=== PATIENT | female | born 1950 ===

== ENCOUNTER 2017-01-03 10:56 | Inpatient (IN) | payer MEDICARE, MEDICAID ==
[2017-01-03] MEDS ORDERED: Iohexol 240 (50 ml) PO ONE (11:35)
--- NOTE | 2017-01-03 11:39 | ED PDOC ---
HPI: Abdomen Time Seen by Provider: 01/03/17 11:02 Chief Complaint (Nursing): Abdominal Pain Chief Complaint (Provider): Abdominal pain History Per: Patient Additional Complaint(s): Pt is a 66 yo female, PMH of DM, HTN and diverticulitis, presents into ER c/o lower abd. pain and N/V/D x 4 days. pt. also c/o intermittent fever. No medications taken to alleviate symptoms thus far. Past Medical History Reviewed: Nursing Documentation, Vital Signs Vital Signs: Last Vital Signs Temp 98.0 F 01/03/17 11:20 Pulse 86 01/03/17 11:20 Resp 20 01/03/17 11:20 BP 154/79 H 01/03/17 11:20 Pulse Ox 98 01/03/17 17:42 - Medical History PMH: Diabetes, Diverticulitis, HTN - Surgical History Surgical History: Cholecystectomy - Family History Family History: States: No Known Family Hx - Living Arrangements Living Arrangements: With Family - Social History Current smoker - smoking cessation education provided: No Alcohol: None Drugs: Denies - Immunization History Hx Tetanus Toxoid Vaccination: No Hx Influenza Vaccination: No - Home Medications Home Medications: Ambulatory Orders Medication Instructions Recorded LORazepam [Ativan] 1 mg PO DAILY PRN 01/03/17 MetFORMIN [glucoPHAGE] 1,000 mg PO BID 01/03/17 Triamterene/Hydrochlorothiazid 1 tab PO DAILY 01/03/17 [Triamterene-Hctz 37.5-25 mg Cp] - Allergies Allergies/Adverse Reactions: Allergies Allergy/AdvReac Type Severity Reaction Status Date / Time aspirin Allergy FATIGUE Verified 01/03/17 11:20 Review of Systems ROS Statement: Except As Marked, All Systems Reviewed And Found Negative Gastrointestinal: Positive for: Nausea, Abdominal Pain, Diarrhea Physical Exam - Reviewed Nursing Documentation Reviewed: Yes Vital Signs Reviewed: Yes - Physical Exam Appears: Positive for: Well, Non-toxic, No Acute Distress Head Exam: Positive for: ATRAUMATIC, NORMAL INSPECTION, NORMOCEPHALIC Skin: Positive for: Normal Color, Warm, DRY Eye Exam: Positive for: EOMI, Normal appearance, PERRL ENT: Positive for: Normal ENT Inspection Neck: Positive for: Normal, Painless ROM Cardiovascular/Chest: Positive for: Regular Rate, Rhythm Respiratory: Positive for: CNT, Normal Breath Sounds Gastrointestinal/Abdominal: Positive for: Bowel Sounds, Soft, Tenderness (llq). Negative for: Distended, Guarding Back: Positive for: Normal Inspection Extremity: Positive for: Normal ROM Neurologic/Psych: Positive for: Alert, Oriented - Laboratory Results Result Diagrams: 01/03/17 12:14 01/03/17 12:14 - ECG O2 Sat by Pulse Oximetry: 98 Medical Decision Making Medical Decision Making: IV access established and diagnostics ordered Labs resulted and reviewed with Pt who demonstrated full understanding K.Dur administered for 3.5 K IVF running. Pt advised to remain NPO CT resulted: IMPRESSION: Severe descending colon and sigmoid diverticulitis without drainable collection. Additional benign and/or incidental findings described above. IV Cipro and flagyl administered Pt remains afebrile while in ED Pt's PMD, Dr. lBum. Dr. Garza contacted and case discussed. arrangements made for admission Disposition - Clinical Impression Clinical Impression: Diverticulitis - Patient ED Disposition Is Patient to be Admitted: Yes - Disposition Disposition Time: 17:41 Condition: STABLE - POA Present On Arrival: None
[2017-01-03] MEDS ORDERED: Iohexol 240 (50 ml) ONE (11:52)
[2017-01-03] MEDS ORDERED: Atrop/Hyos/Scop/PhenoB Elixir PO ONE (12:00)
[2017-01-03 12:21] LABS: BASO % 0.2 % (0.0-2.0); EOS # 0.1 K/uL (0.0-0.7); EOS % 0.8 % (0.0-4.0); HEMATOCRIT 39.2 % (34.0-47.0); LYMPH % 25.2 % (20.0-40.0); MEAN CORPUSCULAR HEMOGLOBIN 30.1 pg (27.0-31.0); MEAN CORPUSCULAR HGB CONC 34.2 g/dL (33.0-37.0); MEAN PLATELET VOLUME 9.6 fl (7.2-11.7); MONO # 0.9 K/uL (0.0-0.8); MONO % 10.9 % (0.0-10.0); NEUT % 62.9 % (50.0-75.0); NRBC % 0.1 % (0.0-0.0); RED CELL DISTRIBUTION WIDTH 13.5 % (11.5-14.5)
[2017-01-03 12:28] LABS: ALKALINE PHOSPHATASE 106 U/L (38-126); ALT/SGPT 32 U/L (9-52); AMYLASE 50 U/L (30-110); AST/SGOT 25 U/L (14-36); BILIRUBIN,TOTAL 0.5 mg/dl (0.2-1.3); BLOOD UREA NITROGEN 15 mg/dl (7-17); CALCIUM 9.6 mg/dL (8.4-10.2); CARBON DIOXIDE 27 mmol/L (22-30); CHLORIDE 101 mmol/L (98-107); GFR AFRICAN-AMERICAN > 60; GLUCOSE,RANDOM 212 mg/dL (65-105); POTASSIUM 3.5 MMOL/L (3.6-5.0); SODIUM 142 mmol/l (132-148); TOTAL PROTEIN 8.2 G/DL (6.3-8.2)
[2017-01-03 12:34] LABS: ALB/GLOB RATIO 1.1 (1.0-2.1)
[2017-01-03] MEDS ORDERED: Potassium Chloride 10 mEq ER Tab PO STA (13:44)
[2017-01-03] MEDS ORDERED: Sodium Chloride 0.9% 50 ML IV ONE (14:05)
[2017-01-03] MEDS ORDERED: Iohexol 300 100 ML IJ ONE (14:05)
[2017-01-03] MEDS ORDERED: Potassium Chloride 10 mEq ER Tab PO ONE (14:53)
--- NOTE | 2017-01-03 15:08 | CT ---
PROCEDURE: CT Abdomen and Pelvis with contrast HISTORY: abdominal pain, hx diverticulitis COMPARISON: None. TECHNIQUE: Contrast dose: 96 cc Omnipaque 300 Radiation dose: Total exam DLP = 1056.91 mGy-cm. This CT exam was performed using one or more of the following dose reduction techniques: Automated exposure control, adjustment of the mA and/or kV according to patient size, and/or use of iterative reconstruction technique. FINDINGS: LOWER THORAX: Unremarkable. LIVER: Hepatic steatosis. No focal masses. No intrahepatic bile duct dilatation or perihepatic ascites. GALLBLADDER AND BILE DUCTS: Status post cholecystectomy. No abnormality is seen in the gallbladder fossa. PANCREAS: Unremarkable. No gross lesion or ductal dilatation. SPLEEN: Unremarkable. ADRENALS: Unremarkable. No mass. KIDNEYS AND URETERS: Unremarkable. No hydronephrosis. No solid mass. VASCULATURE: Unremarkable. No aortic aneurysm. BOWEL: Mural thickening of the wall of the colon primarily descending colon and sigmoid consistent with acute/ severe diverticulitis. No drainable collection, loculated air or free air. Mural thickening involving ascending and transverse colon also identified. APPENDIX: Normal appendix. PERITONEUM: Unremarkable. No free fluid. No free air. LYMPH NODES: Unremarkable. No enlarged lymph nodes. BLADDER: Unremarkable. REPRODUCTIVE: Unremarkable. BONES: No acute fracture. OTHER FINDINGS: None. IMPRESSION: Severe descending colon and sigmoid diverticulitis without drainable collection. Additional benign and/or incidental findings described above.
[2017-01-03] MEDS ORDERED: Ciprofloxacin 400mg/200ml D5W 400 MG/200 ML BAG IVPB STA (15:26)
[2017-01-03] MEDS ORDERED: metroNIDAZOLE 500mg/100ml NS 100 ML IVPB STA (15:26)
[2017-01-03] MEDS ORDERED: Ciprofloxacin 400mg/200ml D5W 400 MG/200 ML BAG IVPB ONE (15:45)
[2017-01-03 17:58] LABS: RBC URINE < 1 /hpf (0-3); URINE BILIRUBIN NEGATIVE (NEGATIVE); URINE BLOOD NEGATIVE (NEGATIVE); URINE COLOR STRAW (YELLOW); URINE GLUCOSE (UA) NEG (Normal); URINE KETONE NEGATIVE (NEGATIVE); URINE LEUKOCYTE ESTERASE NEG Leu/uL (Negative); URINE PROTEIN NEGATIVE (NEGATIVE); URINE UROBILINOGEN 0.2-1.0 mg/dL (0.2-1.0); WBC URINE 1 /hpf (0-5)
[2017-01-03] MEDS: Ciprofloxacin 400mg/200ml D5W 400 MG/200 ML BAG IVPB SCH (21:22)
[2017-01-03] MEDS: Dextrose 5%/Lactated Ringer's 1,000 ML IV SCH (23:49)
[2017-01-04] MEDS ORDERED: metroNIDAZOLE 500mg/100ml NS 100 ML IVPB SCH (01:00)
[2017-01-04 06:23] LABS: HEMATOCRIT 36.3 % (34.0-47.0); MEAN CELL VOLUME 88.8 fl (81.0-99.0); MEAN CORPUSCULAR HEMOGLOBIN 29.9 pg (27.0-31.0); MEAN CORPUSCULAR HGB CONC 33.7 g/dL (33.0-37.0); RED CELL DISTRIBUTION WIDTH 13.6 % (11.5-14.5); WHITE BLOOD COUNT 6.8 K/uL (4.8-10.8)
[2017-01-04 06:43] LABS: ALKALINE PHOSPHATASE 95 U/L (38-126); ALT/SGPT 33 U/L (9-52); AST/SGOT 28 U/L (14-36); BILIRUBIN,TOTAL 0.4 mg/dl (0.2-1.3); BLOOD UREA NITROGEN 12 mg/dl (7-17); CALCIUM 8.7 mg/dL (8.4-10.2); CARBON DIOXIDE 29 mmol/L (22-30); CHLORIDE 102 mmol/L (98-107); GFR AFRICAN-AMERICAN > 60; GLUCOSE,RANDOM 213 mg/dL (65-105); POTASSIUM 3.4 MMOL/L (3.6-5.0); SODIUM 141 mmol/l (132-148); TOTAL PROTEIN 7.3 G/DL (6.3-8.2)
[2017-01-04] MEDS ORDERED: Potassium Chloride 20 mEq ER Tab PO ONE (09:16)
[2017-01-04] MEDS: Ciprofloxacin 400mg/200ml D5W 400 MG/200 ML BAG IVPB SCH ×2 (10:53→22:10)
--- NOTE | 2017-01-04 13:29 | CP.PCM.HP ---
History of Present Illness - History of Present Illness History of Present Illness: 55 YO F w/ PMH of HTN, DM, and diverticulitis was admitted for abdominal pain associated with nausea, vomiting, diarrhea. PMH: Diabetes, diverticulticulitis, HTN PSH: Cholecystectomy FH: Not significant Present on Admission - Present on Admission Any Indicators Present on Admission: No Past Patient History - Past Medical History & Family History Past Medical History?: Yes - Past Social History Smoking Status: Never Smoked - CARDIAC Hx Cardiac Disorders: Yes Hx Hypertension: Yes - PULMONARY Hx Respiratory Disorders: No - NEUROLOGICAL Hx Neurological Disorder: No - HEENT Hx HEENT Problems: No - RENAL Hx Chronic Kidney Disease: No - ENDOCRINE/METABOLIC Hx Endocrine Disorders: Yes Hx Diabetes Mellitus Type 2: Yes - HEMATOLOGICAL/ONCOLOGICAL Hx Blood Disorders: No - INTEGUMENTARY Hx Dermatological Problems: No - MUSCULOSKELETAL/RHEUMATOLOGICAL Hx Musculoskeletal Disorders: No Hx Falls: No - GASTROINTESTINAL Hx Gastrointestinal Disorders: Yes Hx Diverticulitis: Yes - GENITOURINARY/GYNECOLOGICAL Hx Genitourinary Disorders: No - PSYCHIATRIC Hx Psychophysiologic Disorder: Yes Hx Anxiety: Yes Hx Substance Use: No - SURGICAL HISTORY Hx Surgeries: Yes Hx Cholecystectomy: Yes - ANESTHESIA Hx Anesthesia: Yes Hx Anesthesia Reactions: No Meds Allergies/Adverse Reactions: Allergies Allergy/AdvReac Type Severity Reaction Status Date / Time aspirin Allergy FATIGUE Verified 01/03/17 11:20 Physical Exam - Head Exam Head Exam: NORMAL INSPECTION - Eye Exam Eye Exam: Normal appearance Pupil Exam: NORMAL ACCOMODATION - Respiratory Exam Respiratory Exam: Clear to Auscultation Bilateral, NORMAL BREATHING PATTERN. absent: Rhonchi, Wheezes - Cardiovascular Exam Cardiovascular Exam: REGULAR RHYTHM, +S1, +S2 - GI/Abdominal Exam GI & Abdominal Exam: Normal Bowel Sounds, Soft Additional comments: LLQ tenderness Results - Vital Signs Recent Vital Signs: Last Vital Signs Temp 97.8 F 01/04/17 08:41 Pulse 61 01/04/17 08:41 Resp 20 01/04/17 08:41 BP 135/86 01/04/17 08:41 Pulse Ox 93 L 01/04/17 08:41 - Labs Result Diagrams: 01/04/17 06:10 01/04/17 06:10 Labs: Laboratory Results - last 24 hr 01/03/17 01/04/17 01/04/17 17:40 06:10 06:10 WBC 6.8 RBC 4.09 Hgb 12.2 Hct 36.3 MCV 88.8 MCH 29.9 MCHC 33.7 RDW 13.6 Plt Count 254 ESR 68 H Sodium 141 Potassium 3.4 L Chloride 102 Carbon Dioxide 29 Anion Gap 13 BUN 12 Creatinine 0.6 L Est GFR ( Amer) > 60 Est GFR (Non-Af Amer) > 60 Random Glucose 213 H Calcium 8.7 Total Bilirubin 0.4 AST 28 ALT 33 Alkaline Phosphatase 95 Total Protein 7.3 Albumin 3.7 Globulin 3.6 Albumin/Globulin Ratio 1.0 Urine Color Straw Urine Clarity Clear Urine pH 6.0 Ur Specific [place] 1.036 H Urine Protein Negative Urine Glucose (UA) Neg Urine Ketones Negative Urine Blood Negative Urine Nitrate Negative Urine Bilirubin Negative Urine Urobilinogen 0.2-1.0 Ur Leukocyte Esterase Neg Urine RBC (Auto) < 1 Urine Microscopic WBC 1 Ur Squamous Epith Cells 1 Assessment & Plan (1) Diverticulitis Status: Acute Comment: - NPO. - GI consulted. - Cipro and Flagyl for Antibiotic treatment. - CT: Severe descenting colon and sigmoid diverticulitis without drainable collection (2) Hypokalemia Status: Acute Comment: Likely secondary to vomiting. - K+: 3.4. - supplement electrolyte (3) DVT prophylaxis Status: Acute Comment: Lovenox 40 daily
--- NOTE | 2017-01-04 15:39 | CON ---
DATE: 01/04/2017 REASON FOR CONSULTATION: Abdominal pain. HISTORY OF PRESENT ILLNESS: This is a pleasant 66-year-old female who is well known to my office, basically comes in for abdominal pain and discomfort x1 day. Noted to have diverticulitis on the CT. The patient's pain improved, but she is still having some nausea, vomiting, fevers and chills. No diarrhea. Lying in bed comfortably, in no apparent distress. PAST MEDICAL HISTORY: As above. PAST SURGICAL HISTORY: As above. MEDICATIONS: Have been reviewed. REVIEW OF SYSTEMS: All other systems have been reviewed and negative apart from the HPI. PHYSICAL EXAMINATION VITAL SIGNS: Reviewed in the hospital, grossly unremarkable. GENERAL: This is a pleasant elderly-appearing female, lying in bed comfortably, in no apparent distress. HEENT: Head; normocephalic and atraumatic. Eyes; pupils equal, round, and reactive to light bilaterally. No conjunctival pallor or icterus. NECK: Supple. Normal range of motion. No lymphadenopathy appreciated. LUNGS: Coarse breath sounds bilaterally. HEART: S1 and S2. Regular rate and rhythm. No murmurs appreciated. ABDOMEN: Soft. Some discomfort in the left lower quadrant. No rebound. No guarding. RECTAL: Deferred. EXTREMITIES: Pulses felt bilaterally. SKIN: Warm, dry, and intact. NEUROLOGIC: A and O x3. LABORATORY DATA: All labs and relevant radiology have been reviewed. Labs include WBC 6.9, hemoglobin of 12.2, hematocrit 36.3. ESR 68. LFTs are normal. CAT scan shows severe diverticulitis in the sigmoid and descending. ASSESSMENT AND PLAN: This is a pleasant 66-year-old female with left-sided diverticulitis and this is her second episode in her lifetime. For now, antibiotics, pain control as needed. If pain free, can start clear liquid and if she tolerates clears, will advance diet as tolerated. We will need a colonoscopy in 6-8 weeks. Thank you for the consult. Hang Ventura MD/ PhD cc: Bunny Garza MD
[2017-01-04] MEDS: hydroCHLOROthiazide-Triamterene 25 mg-37.5 mg Cap UD PO SCH (17:15)
[2017-01-04] MEDS: Insulin Regular 100 units/ml SC SCH ×2 (17:20→22:00)
[2017-01-04] MEDS: Enoxaparin 40 mg Syringe SC SCH (17:21)
[2017-01-04] MEDS: Dextrose 5%/Lactated Ringer's 1,000 ML IV SCH (17:23)
[2017-01-05] MEDS: Dextrose 5%/Lactated Ringer's 1,000 ML IV SCH (05:11)
[2017-01-05 06:13] LABS: HEMATOCRIT 35.2 % (34.0-47.0); MEAN CELL VOLUME 88.3 fl (81.0-99.0); MEAN CORPUSCULAR HEMOGLOBIN 29.8 pg (27.0-31.0); MEAN CORPUSCULAR HGB CONC 33.7 g/dL (33.0-37.0); RED CELL DISTRIBUTION WIDTH 13.4 % (11.5-14.5); WHITE BLOOD COUNT 5.6 K/uL (4.8-10.8)
[2017-01-05 06:29] LABS: BLOOD UREA NITROGEN 10 mg/dl (7-17); CALCIUM 8.8 mg/dL (8.4-10.2); CARBON DIOXIDE 27 mmol/L (22-30); CHLORIDE 104 mmol/L (98-107); GFR AFRICAN-AMERICAN > 60; GLUCOSE,RANDOM 208 mg/dL (65-105); POTASSIUM 3.5 MMOL/L (3.6-5.0); SODIUM 142 mmol/l (132-148)
[2017-01-05 07:30] VITALS: BP 134/68; PULSE 66; RESP 20; TEMP 98; O2SAT 96
[2017-01-05] MEDS ORDERED: Potassium Chloride 20 mEq ER Tab PO ONE (08:41)
[2017-01-05] MEDS: Ciprofloxacin 400mg/200ml D5W 400 MG/200 ML BAG IVPB SCH (09:27)
[2017-01-05] MEDS: hydroCHLOROthiazide-Triamterene 25 mg-37.5 mg Cap UD PO SCH (09:28)
[2017-01-05] MEDS: Enoxaparin 40 mg Syringe SC SCH (09:29)
--- NOTE | 2017-01-05 13:12 | CP.PCM.PN ---
Subjective - Date & Time of Evaluation Date of Evaluation: 01/05/17 Time of Evaluation: 13:00 - Subjective Subjective: no pain Objective - Vital Signs/Intake and Output Vital Signs (last 24 hours): Temp Pulse Resp BP Pulse Ox 98.0 F 66 20 134/68 96 01/05/17 07:29 01/05/17 07:29 01/05/17 07:29 01/05/17 07:29 01/05/17 07:29 - Medications Medications: Current Medications Enoxaparin Sodium (Lovenox) 40 mg SC DAILY ROMANA PRN Reason: Protocol Last Admin: 01/05/17 09:29 Dose: 40 mg Ciprofloxacin (Cipro 400mg/200ml Dsw) 400 mg in 200 mls @ 200 mls/hr IVPB Q12 ROMANA PRN Reason: Protocol Last Admin: 01/05/17 09:27 Dose: 200 mls/hr Insulin Human Regular (Humulin R) 0 units SC ACHS ROMANA PRN Reason: Protocol Last Admin: 01/04/17 22:00 Dose: Not Given Lorazepam (Ativan) 1 mg PO DAILY PRN PRN Reason: Anxiety Metronidazole (Flagyl) 500 mg PO Q8 ROMANA PRN Reason: Protocol Last Admin: 01/05/17 09:29 Dose: 500 mg Pantoprazole Sodium (Protonix Inj) 40 mg IVP DAILY [facility] Last Admin: 01/05/17 09:30 Dose: 40 mg Triamterene/HCTZ (Dyazide 25 Mg-37.5 Mg) 1 cap PO DAILY [facility] Last Admin: 01/05/17 09:28 Dose: 1 cap - Labs Labs: 01/05/17 06:00 01/05/17 06:00 - Respiratory Exam Respiratory Exam: NORMAL BREATHING PATTERN - Cardiovascular Exam Cardiovascular Exam: REGULAR RHYTHM - GI/Abdominal Exam GI & Abdominal Exam: Soft, Normal Bowel Sounds Assessment and Plan - Assessment and Plan (Free Text) Assessment: 66 yo female with diverticulits advance diet dc planning
[2017-01-05] MEDS: Insulin Regular 100 units/ml SC SCH (15:45)
--- NOTE | 2017-01-05 16:15 | CP.PCM.DIS ---
Provider - Provider Date of Admission: 01/03/17 16:00 Attending physician: Bunny Garza MD Time Spent in preparation of Discharge (in minutes): 30 Diagnosis - Discharge Diagnosis (1) Diverticulitis Status: Acute (2) Hypokalemia Status: Acute (3) DVT prophylaxis Status: Acute Hospital Course - Lab Results Lab Results: Most Recent Lab Values WBC 5.6 K/uL (4.8-10.8) 01/05/17 06:00 RBC 3.99 Mil/uL (3.80-5.20) 01/05/17 06:00 Hgb 11.9 g/dL (12.0-16.0) L 01/05/17 06:00 Hct 35.2 % (34.0-47.0) 01/05/17 06:00 MCV 88.3 fl (81.0-99.0) 01/05/17 06:00 MCH 29.8 pg (27.0-31.0) 01/05/17 06:00 MCHC 33.7 g/dL (33.0-37.0) 01/05/17 06:00 RDW 13.4 % (11.5-14.5) 01/05/17 06:00 Plt Count 268 K/uL (130-400) 01/05/17 06:00 MPV 9.6 fl (7.2-11.7) 01/03/17 12:14 Neut % (Auto) 62.9 % (50.0-75.0) 01/03/17 12:14 Lymph % (Auto) 25.2 % (20.0-40.0) 01/03/17 12:14 [place] % (Auto) 10.9 % (0.0-10.0) H 01/03/17 12:14 Eos % (Auto) 0.8 % (0.0-4.0) 01/03/17 12:14 Baso % (Auto) 0.2 % (0.0-2.0) 01/03/17 12:14 Neut # 5.0 K/uL (1.8-7.0) 01/03/17 12:14 Lymph # 2.0 K/uL (1.0-4.3) 01/03/17 12:14 [place] # 0.9 K/uL (0.0-0.8) H 01/03/17 12:14 Eos # 0.1 K/uL (0.0-0.7) 01/03/17 12:14 Baso # 0.0 K/uL (0.0-0.2) 01/03/17 12:14 ESR 68 mm/hr (0-30) H 01/04/17 06:10 Sodium 142 mmol/l (132-148) 01/05/17 06:00 Potassium 3.5 MMOL/L (3.6-5.0) L 01/05/17 06:00 Chloride 104 mmol/L (98-107) 01/05/17 06:00 Carbon Dioxide 27 mmol/L (22-30) 01/05/17 06:00 Anion Gap 15 (-20) 01/05/17 06:00 BUN 10 mg/dl (7-17) 01/05/17 06:00 Creatinine 0.6 mg/dL (0.7-1.2) L 01/05/17 06:00 Est GFR ( Amer) > 60 01/05/17 06:00 Est GFR (Non-Af Amer) > 60 01/05/17 06:00 POC Glucose (mg/dL) 222 mg/dL (65-110) H 01/05/17 06:18 Random Glucose 208 mg/dL (65-105) H 01/05/17 06:00 Calcium 8.8 mg/dL (8.4-10.2) 01/05/17 06:00 Total Bilirubin 0.4 mg/dl (0.2-1.3) 01/04/17 06:10 AST 28 U/L (14-36) 01/04/17 06:10 ALT 33 U/L (9-52) 01/04/17 06:10 Alkaline Phosphatase 95 U/L (38-126) 01/04/17 06:10 Troponin I < 0.0120 ng/mL (0.00-0.120) 01/03/17 12:14 Total Protein 7.3 G/DL (6.3-8.2) 01/04/17 06:10 Albumin 3.7 g/dL (3.5-5.0) 01/04/17 06:10 Globulin 3.6 gm/dL (2.2-3.9) 01/04/17 06:10 Albumin/Globulin Ratio 1.0 (1.0-2.1) 01/04/17 06:10 Amylase 50 U/L (30-110) 01/03/17 12:14 Urine Color Straw (YELLOW) 01/03/17 17:40 Urine Clarity Clear (Clear) 01/03/17 17:40 Urine pH 6.0 (5.0-8.0) 01/03/17 17:40 Ur Specific [place] 1.036 (1.003-1.030) H 01/03/17 17:40 Urine Protein Negative mg/dL (NEGATIVE) 01/03/17 17:40 Urine Glucose (UA) Neg mg/dL (Normal) 01/03/17 17:40 Urine Ketones Negative mg/dL (NEGATIVE) 01/03/17 17:40 Urine Blood Negative (NEGATIVE) 01/03/17 17:40 Urine Nitrate Negative (NEGATIVE) 01/03/17 17:40 Urine Bilirubin Negative (NEGATIVE) 01/03/17 17:40 Urine Urobilinogen 0.2-1.0 mg/dL (0.2-1.0) 01/03/17 17:40 Ur Leukocyte Esterase Neg Jaspreet/uL (Negative) 01/03/17 17:40 Urine RBC (Auto) < 1 /hpf (0-3) 01/03/17 17:40 Urine Microscopic WBC 1 /hpf (0-5) 01/03/17 17:40 Ur Squamous Epith Cells 1 /hpf (0-5) 01/03/17 17:40 - Hospital Course Hospital Course: 55 YO F w/ PMH of HTN, DM was admitted for abdominal pain and found to have diverticulitis on CT. IV antibiotics were given, patient does not have any abdominal pain today feeling better. Tolerating PO intake. Cleared by GI. F/U with PMD in 1 week Discharge Exam - Head Exam Head Exam: NORMAL INSPECTION - Eye Exam Eye Exam: Normal appearance - Respiratory Exam Respiratory Exam: Clear to PA & Lateral, NORMAL BREATHING PATTERN. absent: Rhonchi, Wheezes - GI/Abdominal Exam GI & Abdominal Exam: Normal Bowel Sounds, Soft. absent: Tenderness - Neurological Exam Neurological exam: Alert, CN II-XII Intact, Oriented x3 - Skin Skin Exam: Normal Color, Warm Discharge Plan - Discharge Medications Prescriptions: Ciprofloxacin HCl [Cipro] 500 mg PO BID #20 tablet Metronidazole [Flagyl] 500 mg PO TID #30 tablet - Follow Up Plan Condition: STABLE Disposition: HOME/ ROUTINE Instructions: Diverticulitis (DC), Diverticulitis Diet (DC) Additional Instructions: linda amy con nolen doctor tianna 7-10 bunch Complete all antibiotics Referrals: Hang Ventura MD, PhD [Staff Provider] - Hossein Blum MD [Family Provider] -
== END 2017-01-05 15:30 | disposition home or self-care (01) | DRG 392 ==
LOC: H.ER 10:56 → H.ERHOLD 16:00 → H.MEDSURG1 18:05
PROVIDERS: ADMIT Family Medicine; ATTEND Family Medicine
DX: K57.32 Diverticulitis of large intestine without perforation or abscess without bleeding (principal); I10 Essential (primary) hypertension; E11.9 Type 2 diabetes mellitus without complications; E87.6 Hypokalemia; Z88.6 Allergy status to analgesic agent